=== PATIENT | female | born 1950 | race African-American/Black ===

== ENCOUNTER 2025-10-08 08:48 | Inpatient (IN) | payer OTHER ==
[~2025-10-08] VITALS: Ht 157.5 cm; Wt 86.9 kg
[2025-10-08 08:49] VITALS: O2SAT 99
[2025-10-08] MEDS: LACTATED RINGERS 1,000 ML IV SCH (09:35)
[2025-10-08] MEDS: VANCOMYCIN 1.5GM/250ML 250 ML IV STA (09:35)
[2025-10-08] MEDS: PIPERACILLIN/TAZO 3.375G/50ML 50 ML IV STA (09:35)
[2025-10-08 09:59] LABS: CREATININE 1.3 mg/dL (0.6-1.0)
[2025-10-08 10:00] LABS: PROTEIN TOTAL 8.0 g/dL (6.0-8.3); UREA NITROGEN BLOOD 8 mg/dL (9-23)
[2025-10-08 10:01] LABS: ASPARTATE AMINOTRANSFERASE 22 IU/L (<34)
[2025-10-08 10:01] LABS: TROPONIN I HIGH SENSITIVITY 7 ng/L (3.0-34)
[2025-10-08 10:02] LABS: BILIRUBIN DIRECT 0.2 mg/dL (<=3.0); BILIRUBIN TOTAL 0.4 mg/dL (0.1-1.0)
[2025-10-08 10:31] LABS: HEMATOCRIT. 30.5 % (36.0-48.0); HEMOGLOBIN. 9.7 g/dL (12.0-16.0); MEAN PLATELET VOLUME 7.2 fl (7.4-10.4); PLATELET 568 x1000/uL (130-400); RED BLOOD CELL COUNT 2.93 mill/uL (4.2-5.4); RED CELL DISTRIBUTION WIDTH 16.4 % (11.6-14.6)
[2025-10-08 11:48] LABS: BAND% 3.0 % (1.0-6.0); EOSINOPHILS % MANUAL 1.0 % (0.0-5.0); LYMPHOCYTES % MANUAL 23.0 % (20.0-60.0); MONOCYTES % MANUAL 18.0 % (2.0-8.0); NEUTROPHILS % MANUAL 55.0 % (45.0-75.0); PLATELET ESTIMATE INCREASED
[2025-10-08] MEDS ORDERED: CLONIDINE 0.1MG TABLET PO PRN (12:15)
[2025-10-08] MEDS ORDERED: DOCUSATE SODIUM 100MG CAPSULE PO PRN (12:15)
[2025-10-08] MEDS ORDERED: IPRATROPIUM/ALBUTEROL 0.5-3(2.5)MG/3ML NEB HHN PRN (12:15)
[2025-10-08] MEDS ORDERED: ACETAMINOPHEN 325MG TABLET PO PRN (12:15)
[2025-10-08] MEDS: ENOXAPARIN 40MG/0.4ML SYR SUBCUT SCH ×2 (13:00→19:57)
[2025-10-08] MEDS: SODIUM CHLORIDE 0.9% 1,000 ML IV SCH (14:09)
[2025-10-08 15:55] VITALS: BP 114/44; PULSE 78; RESP 18; TEMP 36.3; O2SAT 96
[2025-10-08 15:58] VITALS: BP 114/44; PULSE 78; RESP 18; TEMP 36.3624
[2025-10-08] MEDS: PANTOPRAZOLE SODIUM 40 MG/VIAL IV SCH (16:55)
[2025-10-08 20:00] VITALS: BP 133/55; PULSE 75; RESP 20; TEMP 36.6; O2SAT 96
[2025-10-09] VITALS: BP 132/50; PULSE 81; RESP 19; TEMP 36.5; O2SAT 97
[2025-10-09] MEDS: FERROUS SULFATE 325MG TABLET PO SCH (01:29)
[2025-10-09 02:58] LABS: VITAMIN B12 SERUM 237 pg/mL (211-911)
[2025-10-09 04:00] VITALS: BP 126/45; PULSE 80; RESP 20; TEMP 36.7; O2SAT 95
[2025-10-09 07:16] LABS: T4 FREE 0.95 ng/dL (0.89-1.76)
[2025-10-09 07:17] LABS: LDL CHOLESTEROL 50 mg/dL (5-100); TRIGLYCERIDE 64 mg/dL (0-150)
[2025-10-09 08:30] VITALS: BP 142/64; PULSE 80; RESP 18; TEMP 36.6; O2SAT 97
[2025-10-09] MEDS: ENOXAPARIN 80MG/0.8ML SYR SUBCUT SCH (09:22)
[2025-10-09 12:00] VITALS: BP 137/61; PULSE 83; RESP 18; TEMP 36.7; O2SAT 100
[2025-10-09] MEDS ORDERED: MAGNESIUM 2 G PREMIX 50 ML IV ONE (12:15)
[2025-10-09] MEDS: MAGNESIUM OXIDE 400MG TABLET PO SCH (13:20)
[2025-10-09] MEDS: MAGNESIUM 2 G PREMIX 50 ML IV NR (13:20)
[2025-10-09] MEDS: CALCIUM CARBONATE/VITAMIN D3 500MG TABLET PO SCH (13:21)
[2025-10-09] MEDS: ACETAMINOPHEN 325MG TABLET PO PRN (13:22)
[2025-10-09 14:33] LABS: *AMPHETAMINES SCREEN URINE NEGATIVE (NEGATIVE); *BARBITURATES SCREEN URINE NEGATIVE (NEGATIVE); *BENZODIAZEPINES SCREEN URINE NEGATIVE (NEGATIVE); *COCAINE SCREEN URINE NEGATIVE (NEGATIVE); CANNABINOID URINE SCREEN NEGATIVE (NEGATIVE); ECSTASY MDMA SCREEN URINE NEGATIVE (NEGATIVE); METHADONE URINE SCREEN NEGATIVE (NEGATIVE); OPIATES URINE SCREEN NEGATIVE (NEGATIVE); PHENCYCLIDINE URINE SCREEN NEGATIVE (NEGATIVE)
[2025-10-09 16:00] VITALS: BP 128/47; PULSE 67; RESP 18; TEMP 36.6; O2SAT 97
[2025-10-09 16:29] LABS: BASOPHILS % 0.6 % (0.0-2.0); EOSINOPHILS % 0.8 % (0.0-5.0); HEMATOCRIT. 25.9 % (36.0-48.0); HEMOGLOBIN. 8.4 g/dL (12.0-16.0); LYMPHOCYTES % 14.8 % (20.0-50.0); MEAN PLATELET VOLUME 7.6 fl (7.4-10.4); MONOCYTES % 14.1 % (2.0-8.0); NEUTROPHILS % 69.7 % (40.0-76.0); PLATELET 466 x1000/uL (130-400); RED BLOOD CELL COUNT 2.53 mill/uL (4.2-5.4); RED CELL DISTRIBUTION WIDTH 16.2 % (11.6-14.6)
[2025-10-09 16:42] LABS: INR 1.1
[2025-10-09 16:45] LABS: PHOSPHORUS 1.8 mg/dL (2.5-4.9)
[2025-10-09 20:00] VITALS: BP 123/61; PULSE 68; RESP 18; TEMP 36.7; O2SAT 97
[2025-10-10] VITALS: BP 118/67; PULSE 76; RESP 18; TEMP 36.8; O2SAT 98
[2025-10-10 02:13] LABS: CLARITY URINE CLEAR (CLEAR); COLOR URINE YELLOW (YELLOW); GLUCOSE URINE NEGATIVE (NEGATIVE); KETONES URINE NEGATIVE (NEGATIVE); LEUKOCYTE ESTERASE URINE NEGATIVE (NEGATIVE); NITRITE URINE NEGATIVE (NEGATIVE); OCCULT BLOOD URINE NEGATIVE (NEGATIVE); PH URINE 7.0 (4.5-8.0); PROTEIN URINE TRACE (NEGATIVE); SPECIFIC GRAVITY URINE 1.009 (1.005-1.030); UROBILINOGEN URINE 0.2 E.U./dL (0.2-1.0)
[2025-10-10 02:16] LABS: SODIUM URINE RANDOM 63.0 mEq/L
[2025-10-10 02:23] LABS: CREATININE URINE RANDOM 64.2 mg/dL; UREA NITROGEN URINE RANDOM 293.0 mg/dL
[2025-10-10 04:00] VITALS: BP 134/72; PULSE 72; RESP 19; TEMP 36.9; O2SAT 97
[2025-10-10 06:14] LABS: SQUAMOUS EPITHELIAL CELL URINE FEW /lpf (RARE/1+)
[2025-10-10 06:15] LABS: BACTERIA URINE NONE SEEN; RBC URINE 0-2 /hpf (0-2); WBC URINE 0-2 /hpf (0-2); YEAST URINE 1+
[2025-10-10 08:00] VITALS: BP 139/84; PULSE 64; RESP 19; TEMP 36.9; O2SAT 97
[2025-10-10] MEDS: POTASSIUM-SODIUM PHOSPHATE POWDER PACKET PO NR (10:04)
[2025-10-10] MEDS: FERROUS SULFATE 325MG TABLET PO SCH (10:05)
[2025-10-10 12:00] VITALS: BP 134/60; PULSE 65; RESP 18; TEMP 36.7; O2SAT 96
[2025-10-10] MEDS ORDERED: FURO-151 PO (14:40)
[2025-10-10] MEDS ORDERED: DABI150C PO (14:40)
[2025-10-10] MEDS ORDERED: METH2.5T PO (14:40)
[2025-10-10] MEDS ORDERED: SPIR25TA6 PO (14:40)
[2025-10-10] MEDS ORDERED: AMLO-905 PO (14:40)
[2025-10-10] MEDS ORDERED: BISOPROLOL PO (14:40)
[2025-10-10] MEDS ORDERED: ALBU90AE INH (14:40)
[2025-10-10] MEDS ORDERED: CALC-1249 PO ×2 (14:40→15:07)
[2025-10-10] MEDS ORDERED: PANT40SU PO ×2 (14:40→15:07)
[2025-10-10] MEDS ORDERED: BUDE10.32 INH (14:40)
[2025-10-10] MEDS ORDERED: LISI10TA26 PO (14:40)
[2025-10-10] MEDS ORDERED: CLON0.1T PO (14:40)
[2025-10-10] MEDS ORDERED: FERR-63 PO (15:07)
[2025-10-10 16:00] VITALS: BP 141/61; PULSE 83; RESP 18; TEMP 36.7; O2SAT 97
[2025-10-10 19:11] LABS: HEMATOCRIT. 27.3 % (36.0-48.0); HEMOGLOBIN. 9.0 g/dL (12.0-16.0); MEAN PLATELET VOLUME 8.3 fl (7.4-10.4); PLATELET 475 x1000/uL (130-400); RED BLOOD CELL COUNT 2.72 mill/uL (4.2-5.4); RED CELL DISTRIBUTION WIDTH 16.4 % (11.6-14.6)
[2025-10-10 19:24] LABS: CREATININE 1.0 mg/dL (0.6-1.0)
[2025-10-10 19:25] LABS: TROPONIN I HIGH SENSITIVITY 11 ng/L (3.0-34)
[2025-10-10 19:26] LABS: UREA NITROGEN BLOOD 11 mg/dL (9-23)
[2025-10-10 19:27] LABS: PHOSPHORUS 2.5 mg/dL (2.5-4.9)
[2025-10-10 20:00] VITALS: BP 140/47; PULSE 88; RESP 19; TEMP 36.7; O2SAT 100
[2025-10-10] MEDS: CALCIUM 1250MG TABLET (500MG ELEMENTAL CALCIUM) PO SCH (21:36)
[2025-10-10 23:59] LABS: LYMPHOCYTES % MANUAL 22.0 % (20.0-60.0); MONOCYTES % MANUAL 17.0 % (2.0-8.0); NEUTROPHILS % MANUAL 61.0 % (45.0-75.0); PLATELET ESTIMATE INCREASED
[2025-10-11] VITALS: BP 137/50; PULSE 85; RESP 19; TEMP 36.6; O2SAT 100
[2025-10-11 04:00] VITALS: BP 145/52; PULSE 90; RESP 18; TEMP 36.6; O2SAT 100
[2025-10-11 08:00] VITALS: BP 152/72; PULSE 94; RESP 18; TEMP 36.8; O2SAT 97
[2025-10-11 12:00] VITALS: BP 102/57; PULSE 87; RESP 18; TEMP 37.1; O2SAT 99
[2025-10-11 17:08] VITALS: BP 120/63; PULSE 80; RESP 18; TEMP 98
== END 2025-10-11 18:23 | disposition home health service (06) | DRG 315 ==
LOC: ER 08:48 → 8WST 11:14 → EDBEDREQTM 11:20 → EDBEDREQ 11:20
PROVIDERS: ADMIT Internal Medicine; ATTEND Internal Medicine
DX: I95.9 Hypotension, unspecified (principal); I13.0 Hypertensive heart and chronic kidney disease with heart failure and stage 1 through stage 4 chronic kidney disease, or unspecified chronic kidney disease; I69.351 Hemiplegia and hemiparesis following cerebral infarction affecting right dominant side; I50.22 Chronic systolic (congestive) heart failure; E83.39 Other disorders of phosphorus metabolism; D63.8 Anemia in other chronic diseases classified elsewhere; E83.51 Hypocalcemia; L89.896 Pressure-induced deep tissue damage of other site; N17.9 Acute kidney failure, unspecified; Z79.01 Long term (current) use of anticoagulants; E66.01 Morbid (severe) obesity due to excess calories; N18.9 Chronic kidney disease, unspecified; L97.919 Non-pressure chronic ulcer of unspecified part of right lower leg with unspecified severity; L97.329 Non-pressure chronic ulcer of left ankle with unspecified severity; Z68.35 Body mass index [BMI] 35.0-35.9, adult; I48.0 Paroxysmal atrial fibrillation; D75.839 Thrombocytosis, unspecified; E83.42 Hypomagnesemia; L85.3 Xerosis cutis; D32.9 Benign neoplasm of meninges, unspecified; I49.1 Atrial premature depolarization; Z79.899 Other long term (current) drug therapy; Z85.3 Personal history of malignant neoplasm of breast
CPT/HCPCS: 36415; 71045; 76770; 80048; 80061; 80076; 80305; 81003; 82570; 82607; 82728; 83540; 83550; 83735; 83880; 83935; 84100; 84300; 84439; 84443; 84484; 84540; 85025; 85044; 93005; 93306; 93970; 96365; 96368; 97162; 99291; J1650; J2470; J2543; J3373; J3475